=== PATIENT | female | born 1985 | race African-American/Black ===

== ENCOUNTER 2016-10-28 20:44 | Inpatient (IN) | payer OTHER ==
[2016-10-28] MEDS ORDERED: CERVIDIL VG ONE (22:48)
[2016-10-28] MEDS ORDERED: AMBIEN PO PRN (22:48)
[2016-10-28 23:44] LABS: Basophils % (Auto) 0.4 % (0.0-1.8); Eosinophils % (Auto) 1.2 % (0.0-4.3); Hematocrit 37.8 % (30.3-42.9); Hemoglobin 12.7 gm/dl (10.1-14.3); Mean Corpuscular HGB Conc 34 % (30-34); Mean Corpuscular Hemoglobin 32 pg (28-32); Mean Corpuscular Volume 95 fl (79-97); Platelet Count 193 K/mm3 (140-440); Red Cell Distribution Width 12.5 % (13.2-15.2); White Blood Count 10.2 K/mm3 (4.5-11.0)
[2016-10-29] MEDS ORDERED: LACTATED RINGERS 1,000 ML ONE (00:14)
[2016-10-29] MEDS: LACTATED RINGERS 1,000 ML IV SCH ×2 (00:37→09:44)
[2016-10-29] MEDS: STADOL IV PRN ×2 (02:28→04:48)
[2016-10-29] MEDS ORDERED: ePHEDrine SULFATE ONE (06:12)
[2016-10-29] MEDS ORDERED: fentaNYL-BUPIV 2 MCG/ML-0.125% 200 MCG/100 ML BAG EPIDURAL SCH (07:00)
[2016-10-29] MEDS ORDERED: NARCAN 2 MG/2 ML IV PRN (07:00)
[2016-10-29] MEDS ORDERED: ePHEDrine SULFATE IV PRN ×2 (07:00→08:32)
--- NOTE | 2016-10-29 07:00 | Anesthesia Consultation ---
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
--- NOTE | 2016-10-29 08:22 | History and Physical Report ---
History of Present Illness Date of examination: 10/29/16 Date of admission: 10/28/16 20:58 Chief complaint: IOL for Postdates@41.3 History of present illness: 31 yo at 41.3 weeks with care with [facility] since 8.4 weeks with uncomplicated course. Past History Past Medical History: no pertinent history Past Surgical History: no surgical history Family/Genetic History: diabetes, hypertension Social history: . denies: smoking, alcohol abuse, prescription drug abuse, IV drug use - Obstetrical History Expected Date of Delivery: 10/19/16 Actual Gestation: 41 Week(s) 3 Day(s) : 1 Para: 0 Hx # Term Pregnancies: 0 Number of Pregnancies: 0 Spontaneous Abortions: 0 Induced : 0 Number of Living Children: 0 Medications and Allergies Allergies Allergy/AdvReac Type Severity Reaction Status Date / Time No Known Allergies Allergy Unverified 10/28/16 11:03 Active Meds: Active Medications Butorphanol Tartrate (Stadol) 2 mg IV Q2H PRN PRN Reason: Labor Pain Last Admin: 10/29/16 04:48 Dose: 2 mg Lactated Ringer's (Lactated Ringers) 1,000 mls @ 125 mls/hr IV DIRECT EVELYN Last Admin: 10/29/16 00:37 Dose: 125 mls/hr Fentanyl/Bupivacaine/Sodium Chlor (Fentanyl-Bupiv 2 Mcg/Ml-0.125%) 200 mcg in 100 mls @ 12 mls/hr EPIDURAL TITR EVELYN PRN Reason: Protocol Zolpidem Tartrate (Ambien) 5 mg PO QHS PRN PRN Reason: Sleep Last Admin: 10/29/16 00:41 Dose: 5 mg Review of Systems All systems: negative - Vital Signs Vital signs: Vital Signs Pulse BP 90 111/68 10/28/16 21:07 10/28/16 21:07 Temp Pulse Resp BP Pulse Ox 98.1 F 95 H 18 106/66 96 10/29/16 07:52 10/29/16 08:17 10/29/16 07:52 10/29/16 07:52 10/29/16 08:17 - Physical Exam Cardiovascular: Regular rate Lungs: Positive: Normal air movement Abdomen: Positive: normal appearance (Gravid) Vagina: Positive: normal moisture (SROM) Uterus: Positive: enlarged Extremities: Positive: normal Deep Tendon Reflex Grade: Normal +2 - Obstetrical FHR: category 2 FHR comments: minimal variability Uterine Contraction Monitor Mode: External Cervical Dilatation: 9 (SROM @0750, moderate, clear fluid) Cervical Effacement Percentage: 90 station: -1 Uterine Contraction Frequency (min): q2-4 Uterine Contraction Pattern: Regular Uterine Tone Measurement Phase: Resting Uterine Contraction Intensity: Moderate Results Result Diagrams: 10/28/16 21:30 Abnormal lab results 10/28/16 Range/Units 21:30 RDW 12.5 L (13.2-15.2) % [place] % (Auto) 7.4 H (0.0-7.3) % Seg Neutrophils % 76.7 H (40.0-70.0) % Seg Neutrophils # 7.9 H (1.8-7.7) K/mm3 All other labs normal. Assessment and Plan A: IUP @41.3 Category 2 FHT with minimal variability GBS negative Comfortable with epidural P: Admit to L&D for cervidil IOL Continuous monitoring Epidural/IV pain meds as desired Expect vaginal delivery
[2016-10-29] MEDS ORDERED: XYLOCAINE 2% INFILTRATI ONE (08:32)
[2016-10-29] MEDS ORDERED: MINERAL OIL PO PRN (08:32)
[2016-10-29] MEDS ORDERED: BRETHINE IVP PRN (08:32)
[2016-10-29] MEDS ORDERED: ZOFRAN IV PRN (08:32)
[2016-10-29] MEDS ORDERED: BRETHINE SUB-Q PRN (08:32)
[2016-10-29] MEDS ORDERED: LACTATED RINGERS 1,000 ML IV SCH (09:00)
[2016-10-29] MEDS ORDERED: PITOCin/NS 30 UNIT/500ML 30 UNITS/500 ML BAG IV SCH (09:00)
--- NOTE | 2016-10-29 12:04 | Procedure Note ---
OB Delivery Note - Delivery Date of Delivery: 10/29/16 (1151) Surgeon: MASOUD ALFONSO Estimated blood loss: 300cc - Vaginal Delivery position: OA Intrapartum events: none Delivery induction: none Delivery monitor: external FHT, external uterine Route of delivery: Delivery cord: true knot, 3 umbilical vessels Delivery laceration: 3rd degree Delivery repair: vicryl Anesthesia: epidural Delivery comments: Baby Mega Gardner was born at 1151 over a 3rd degree perineal laceration. Baby responded well to drying and stimulation and was placed directly to mom's chest/ abdomen. Cord was clamped and cut at 5 minutes of life. Placenta delivered. Laceration repaired by Lucy Peres CNM and Dr. Barrera Arriola. EBL: Apgars 8 /9 - A at 1 minute: 8 at 5 minutes: 9 Gender: Male
[2016-10-29] MEDS ORDERED: PHENERGAN PR PRN (12:05)
[2016-10-29] MEDS ORDERED: LANSINOH TP PRN (12:05)
[2016-10-29] MEDS ORDERED: TYLENOL PO PRN (12:05)
[2016-10-29] MEDS ORDERED: DULCOLAX PR PRN (12:05)
[2016-10-29] MEDS ORDERED: MILK OF MAGNESIA PO PRN (12:05)
[2016-10-29] MEDS ORDERED: DERMOPLAST TP PRN (12:05)
[2016-10-29] MEDS ORDERED: NORCO 5/325 PO PRN (12:05)
[2016-10-29] MEDS ORDERED: TUCKS PAD TP PRN (12:05)
[2016-10-29] MEDS: PITOCin/NS 20 UNIT/1000ML DRIP 20 UNITS/1,000 ML BAG IV SCH ×2 (12:12→14:06)
[2016-10-29] MEDS ORDERED: SODIUM CHLORIDE FLUSH SYRINGE 10 ML IV NR (13:00)
[2016-10-29] MEDS ORDERED: AMMONIA INHALANT IH ONE (16:35)
[2016-10-29] MEDS: MOTRIN PO SCH ×2 (18:00→22:21)
[2016-10-29] MEDS: COLACE PO SCH (22:09)
[2016-10-30 01:24] LABS: Hematocrit 29.6 % (30.3-42.9)
[2016-10-30] MEDS: MOTRIN PO SCH ×2 (05:14→13:40)
--- NOTE | 2016-10-30 09:46 | Progress Note ---
Assessment and Plan A: PPD #1 -stable P: Discharge home today Subjective - Subjective Date of service: 10/30/16 Principal diagnosis: , 3rd degree laceration with extension into rectal spincter Patient reports: appetite normal [place]: doing well Objective - Vital Signs Latest vital signs: Vital Signs Temp Pulse Pulse Resp BP BP Pulse Ox 10/30/16 00:05 98.0 F 92 H 18 101/71 10/29/16 22:21 18 10/29/16 20:30 97.9 F 89 18 97/61 10/29/16 16:55 98.3 F 67 18 108/70 10/29/16 15:30 98.1 F 80 18 92/54 10/29/16 14:30 98.9 F 110/60 10/29/16 13:45 102 H 20 104/58 10/29/16 13:30 100 H 20 98/68 10/29/16 13:15 108 H 20 102/56 10/29/16 12:13 98.9 F 18 105/59 10/29/16 11:24 100 H 112/60 10/29/16 11:22 94 H 100 10/29/16 11:17 92 H 100 10/29/16 11:12 79 100 10/29/16 11:07 86 100 10/29/16 11:02 83 100 10/29/16 10:57 78 100 10/29/16 10:55 93 H 96/56 10/29/16 10:52 74 100 10/29/16 10:47 81 100 10/29/16 10:42 79 100 10/29/16 10:37 77 100 10/29/16 10:32 74 100 10/29/16 10:27 74 100 10/29/16 10:24 74 98/56 10/29/16 10:22 77 100 10/29/16 10:17 72 100 10/29/16 10:12 68 100 10/29/16 10:07 70 100 10/29/16 10:02 73 100 10/29/16 09:57 98.2 F 70 100 10/29/16 09:52 75 100 10/29/16 09:47 70 100 Intake and Output 10/29/16 10/30/16 10/30/16 22:59 06:59 14:59 Intake Total 1360 240 Output Total 900 Balance 460 240 Intake: IV 1000 PITOCin/NS 20 UNIT/1000ML 1000 DRIP 20 units In 1,000 ml @ 125 mls/hr IV DIRECT EVELYN Rx#:[id number] Oral 360 240 Output: Urine 900 Void 900 Other: Total, Intake Amount 120 120 Total, Output Amount 900 # Voids Void 1 - Exam Breasts: Present: deferred Cardiovascular: Present: Regular rate Lungs: Present: Clear to auscultation Abdomen: Present: normal appearance Vulva: both: normal Uterus: Present: fundal height below umbilicus Extremities: Present: normal Deep Tendon Reflex Grade: Normal +2 - Labs Labs: Abnormal lab results 10/30/16 Range/Units 01:04 Hgb 10.0 L (10.1-14.3) gm/dl Hct 29.6 L D (30.3-42.9) %
--- NOTE | 2016-10-30 09:48 | Discharge Summary ---
Providers - Providers Date of Admission: 10/28/16 20:58 Date of discharge: 10/30/16 Attending physician: FRANCIS LAUGHLIN MD Primary care physician: FRANCIS LAUGHLIN MD Hospitalization Reason for admission: active labor Delivery: Laceration: 3rd degree, other (rectal spincter tear) Incision: intact Other procedures: none complications: none Discharge diagnosis: IUP at term delivered baby: male Condition at discharge: Good Disposition: DISCHARGED TO HOME OR SELFCARE Plan - Provider Discharge Summary Activity: routine, no sex for 6 weeks, no strenuous exercise Additional instructions: [] Smoking cessation referral if applicable(refer to patient education folder for contact #) [] Refer to [facility] Booklet Call your doctor immediately for: * Fever > 100.5 * Heavy vaginal bleeding ( >1 pad per hour) * Severe persistent headache * Shortness of breath * Reddened, hot, painful area to leg or breast * Drainage or odor from incision. * Keep incision clean and dry at all times and follow doctor's instructions regarding bathing/showering - Follow up plan Follow up: [facility] [Provider Group] - 6 Weeks
[2016-10-30] MEDS ORDERED: PRENATAL VITAMIN PO SCH (10:00)
--- NOTE | 2016-10-30 10:44 | Progress Note ---
Subjective Date of service: 10/30/16 Principal diagnosis: , 3rd degree laceration with extension into rectal spincter Interval history: 1st day after normal vaginal delivery Patient is in the bed, comfortable. Pian is well controlled with pain meds. Ambulated well. No residual neurological deficit. No anesthesia complications Objective - Constitutional Vitals: Vital Signs - 12hr 10/30/16 00:05 Temperature 98.0 F Pulse Rate [ 92 H From Monitor] Respiratory 18 Rate Blood Pressure 101/71 [Left Arm] - Labs CBC & Chem 7: 10/30/16 01:04 Labs: Abnormal lab results 10/30/16 Range/Units 01:04 Hgb 10.0 L (10.1-14.3) gm/dl Hct 29.6 L D (30.3-42.9) %
[2016-10-30] MEDS: COLACE PO SCH (13:41)
[2016-10-30 17:59] VITALS: BP 90/58
== END 2016-10-30 17:20 | disposition home or self-care (01) | DRG 775 ==
LOC: TRG 20:44 → LD 20:58 → OB 10-29 15:10
PROVIDERS: ADMIT Obstetrics & Gynecology; ATTEND Obstetrics & Gynecology
PROC: 00HU33Z Insertion of Infusion Device into Spinal Canal, Percutaneous Approach (ICD-10-PCS; principal; 2016-10-29)
PROC: 10E0XZZ Delivery of Products of Conception, External Approach (ICD-10-PCS; principal; 2016-10-29)
PROC: 0DQR0ZZ Repair Anal Sphincter, Open Approach (ICD-10-PCS; principal; 2016-10-29)
PROC: 3E0S3CZ (ICD-10-PCS; principal; 2016-10-29)
DX: O48.0 Post-term pregnancy (principal); O70.20 Third degree perineal laceration during delivery, unspecified; O69.2XX0 Labor and delivery complicated by other cord entanglement, with compression, not applicable or unspecified; Z3A.41 41 weeks gestation of pregnancy; Z37.0 Single live birth; Z83.3 Family history of diabetes mellitus; Z82.49 Family history of ischemic heart disease and other diseases of the circulatory system
CPT/HCPCS: 36415; 59200; 85014; 85018; 85025; 86850; 86900; 86901; 99211; G0463; J0595; J2405; J2590; J7120